=== PATIENT | male | born 1960 | race Asian ===

== ENCOUNTER → 2017-05-22 | Outpatient (CLI) | payer MEDICAID ==
[2017-05-22 10:43] LABS: ANION GAP 12 mmol/L (8-16); CALCIUM, TOTAL 9.1 mg/dL (8.8-10.5); CARBON DIOXIDE 24 mmol/L (22-29); CHLORIDE 104 mmol/L (98-107); CREATININE 1.11 mg/dL (0.60-1.30); GLOMERULAR FILTR. RATE CALC > 60 mL/min (>60); POTASSIUM 4.1 mmol/L (3.5-5.1); SODIUM SERUM 140 mmol/L (136-145); UREA NITROGEN, BLOOD 20 mg/dL (7-18); URIC ACID 8.6 mg/dL (2.6-7.2)
[2017-05-24 12:32] LABS: OXALATE 24HOUR URINE QUANT 29 mg/24 hr (7-44); OXALATE URINE QUANT 12 mg/L (Undefined)
[2017-05-24 14:09] LABS: URINE CITRIC ACID 89 mg/L (Undefined); URINE CITRIC ACID 24 HR 214 mg/24 hr (320-1240)
== END | disposition home or self-care (01) ==
LOC: LABPV 08:06
PROVIDERS: ATTEND Internal Medicine Nephrology
DX: N20.0 Calculus of kidney (principal)
CPT/HCPCS: 81050; 82340; 82507; 83945; 84300; 84550; 84560